=== PATIENT | male | born 2000 | race Caucasian/White ===

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

== ENCOUNTER → 2022-04-29 16:42 | Outpatient (CLI) | payer MEDICAID, OTHER, SELFPAY ==
--- NOTE | 2022-04-29 16:46 | DI.US.S_ITS ---
PROCEDURE: US CHEST COMPARISON: None. INDICATIONS: RIB LUMP FINDINGS: Ultrasound was performed in the area of interest. No mass or other abnormalities are identified. IMPRESSION: A cause for the palpable lump is not identified on ultrasound. Dictated by: Alyssia Schreiber M.D. on 04/30/2022 at 11:02 Approved by: Alyssia Schreiber M.D. on 04/30/2022 at 11:03
== END ==
PROVIDERS: Family Provider Pediatrics; PCP Family Medicine; Referring Provider Family Medicine; Visit Provider Family Medicine
DX: M89.9 Disorder of bone, unspecified (principal); R07.81 Pleurodynia
CPT/HCPCS: 76604